=== PATIENT | female | born 1945 | race Caucasian/White ===

== ENCOUNTER → 2016-11-20 | Outpatient (CLI) | payer OTHER, BC ==
[~2016-11-20] MED LIST: ATEN50TA8 PO; CHOL100010 PO; DOCU-94 PO; HYDR-5688 PO; LOVA40TA4 PO; PRLSR20 PO; TAMS0.4C38 PO
--- NOTE | 2016-11-20 12:54 | DIAGNOSTIC IMAGING REPORT ---
MRI LEFT KNEE NO CONTRAST CLINICAL HISTORY: Left knee pain COMPARISON STUDY: 06/12/2016 FINDINGS: Imaging was performed in sagittal, coronal, and axial planes. There is a small suprapatellar joint effusion. There is a subchondral cyst within the lateral tibial plateau. There is marrow edema involving the medial tibial plateau with appearance suggestive of osteonecrosis. The anterior and posterior crucial ligaments appear intact. There is a horizontal tear involving the posterior horn the medial meniscus. No tears a lateral meniscus are visualized. There are degenerative changes present within the patellofemoral joint with dorsal patellar spurring, chondromalacia patella, and subchondral degenerative marrow edema. The medial and lateral collateral ligaments appear intact. There is moderate chondrosis involving the medial joint compartment. IMPRESSION: 1. 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 Degenerative changes involving the medial joint compartment with cartilaginous loss, medial joint compartment osteophytic spurring. 3. Horizontal tear involving the posterior horn the medial meniscus 4. Chondromalacia patella 5. No evidence of cruciate or collateral ligament disruption 6. Small joint effusion Electronically signed by: Irineo Silveira M.D. 11/20/2016 12:53 PM Dictated Date/Time: 11/20/2016 12:49 PM
== END | disposition home or self-care (01) ==
LOC: C.MRI 12:00
PROVIDERS: ATTEND Family Medicine
DX: S83.242A Other tear of medial meniscus, current injury, left knee, initial encounter (principal); M87.9 Osteonecrosis, unspecified; M22.42 Chondromalacia patellae, left knee; X58.XXXA Exposure to other specified factors, initial encounter

== ENCOUNTER → 2017-05-30 | Outpatient (CLI) | payer OTHER, BC ==
--- NOTE | 2017-05-30 16:11 | MAMMOGRAPHY REPORT ---
BILATERAL DIGITAL SCREENING MAMMOGRAM WITH CAD: 05/30/2017 CLINICAL HISTORY: Routine screening. Patient has no complaints. TECHNIQUE: Current study was also evaluated with a Computer Aided Detection (CAD) system. Bilateral CC and MLO views were obtained. COMPARISON: Comparison is made to exams dated: 12/31/2015 mammogram, 08/06/2014 mammogram, 07/01/2013 m ammogram, 01/05/2011 mammogram - [facility], and 12/28/2009 mammogram - [facility]. BREAST COMPOSITION: There are scattered areas of fibroglandular density in both breasts. FINDINGS: No suspicious masses, calcifications, or areas of architectural distortion are noted in ei ther breast. There has been no significant interval change compared to prior exams. Scattered bilater al benign-appearing calcifications are not significantly changed. IMPRESSION: ACR BI-RADS CATEGORY 2: BENIGN There is no mammographic evidence of malignancy. A 1 year screening mammogram is recommended. The pa tient will receive written notification of the results. Approximately 10% of breast cancers are not detected with mammography. A negative mammographic report should not delay biopsy if a clinically suggestive mass is present. Breanna Mares M.D. /:05/30/2017 14:02:07 Rat Breeder: Kathy SHEETSR, M, [facility] letter sent: Normal 1/2 BI-RADS Code: ACR BI-RADS Category 2: Benign
== END | disposition home or self-care (01) ==
LOC: C.MAMM 13:28
PROVIDERS: ATTEND Family Medicine
DX: Z12.31 Encounter for screening mammogram for malignant neoplasm of breast (principal)

== ENCOUNTER → 2017-08-22 | Outpatient (CLI) | payer OTHER, BC | END | disposition home or self-care (01) | LOC: C.LABMFLN 17:47 | PROVIDERS: ATTEND Family Medicine | DX: J02.9 Acute pharyngitis, unspecified (principal) ==

== ENCOUNTER 2019-04-01 10:45 | Observation (INO) ==
[2019-04-01] MEDS ORDERED: FUROSEMIDE 40 MG/4 ML VIAL IV STA (11:34)
[2019-04-01] MEDS ORDERED: LEVOFLOXACIN/D5W 500 MG/100 ML BAG IV STA (11:36)
[2019-04-01] MEDS ORDERED: SODIUM CHLORIDE 0.9% 1000ML 1,000 ML IV SCH (11:45)
--- NOTE | 2019-04-01 12:11 | XRay Report ---
XR chest 1V portable HISTORY: dizzy COMPARISON: Chest 11/04/2015. FINDINGS: The lungs are clear. Cardiac silhouette is normal in size. No pleural effusions. No pneumot horax. IMPRESSION: No acute process. Electronically signed by: Neo Willoughby M.D. 04/01/2019 12:10 PM
[2019-04-01 12:16] LABS: Alanine Aminotransferase 19 U/L (12-78); Albumin Level 3.5 gm/dl (3.4-5.0); Aspartate Aminotransferase 16 U/L (15-37); BUN Creatinine Ratio 23.1 (10-20); Blood Urea Nitrogen 19 mg/dl (7-18); Carbon Dioxide 26 mmol/L (21-32); Chloride 104 mmol/L (98-107); Creatinine Clr Calc Pharmacy 58.7 ml/min; Est GFR (African American) 82.9; Est GFR (Non-African American) 71.5; Glucose 150 mg/dl (70-99); Potassium 3.6 mmol/L (3.5-5.1); Sodium 139 mmol/L (136-145)
--- NOTE | 2019-04-01 12:16 | CT Scan Report ---
CT SCAN OF THE BRAIN WITHOUT IV CONTRAST CLINICAL HISTORY: Dizziness. COMPARISON STUDY: MRI of the brain dated 10/31/2018. TECHNIQUE: Unenhanced axial CT scan of the brain is performed from the vertex to the skull base. A do se lowering technique was utilized adhering to the principles of ALARA. CT DOSE: 537.48 mGy.cm FINDINGS: Brain parenchyma: There is minimal microangiopathic change. There is no hemorrhage, mass effect, or e vidence of acute territorial ischemia by CT criteria. Fairchild-white matter differentiation is preserved. No extra-axial fluid collection is seen. Ventricles, sulci, cisterns: Normal in configuration. Intracranial vasculature: There is atherosclerotic calcification of the cavernous carotid arteries. Calvarium: Unremarkable. Sinuses and mastoids: The visualized paranasal sinuses are clear. The mastoid air cells are well pneu matized. Orbits: The bony orbits are grossly intact. There is a right ocular lens implant. IMPRESSION: There is no hemorrhage, mass effect, or evidence of acute territorial ischemia by CT mansoor boyd. Electronically signed by: Eusebio Manjarrez M.D. 04/01/2019 12:14 PM
[2019-04-01 12:21] LABS: Albumin Globulin Ratio 0.9 (0.9-2); Alkaline Phosphatase 73 U/L (45-117); Bilirubin,Total 0.9 mg/dl (0.2-1); Globulin 4.1 gm/dl (2.5-4.0); Total Protein 7.6 gm/dl (6.4-8.2); Troponin I < 0.015 ng/ml (0-0.045)
[2019-04-01 12:22] LABS: INR 1.1 (0.9-1.1); Prothrombin Time 10.8 Seconds (9.0-12.0)
[2019-04-01 12:34] LABS: Basophils # (auto) 0.03 K/uL (0-0.2); Basophils % (auto) 0.4 %; Eosinophils # (auto) 0.15 K/uL (0-0.5); Eosinophils % (auto) 1.9 %; Hematocrit (blood only) 37.6 % (37-47); Hemoglobin 12.9 g/dL (12.0-16.0); Immature Granulocytes # (auto) 0.02 K/uL (0.00-0.02); Immature Granulocytes % (auto) 0.3 %; Lymphocytes # (auto) 1.23 K/uL (1.2-3.4); Lymphocytes % (auto) 15.7 %; Mean Corpuscular Hgb Conc 34.3 g/dL (32-36); Mean Corpuscular Volume 86.8 fL (80-100); Mean Platelet Volume 10.5 fL (7.4-10.4); Monocytes # (auto) 0.66 K/uL (0.11-0.59); Monocytes % (auto) 8.4 %; Neutrophils # (auto) 5.74 K/uL (1.4-6.5); Neutrophils % (auto) 73.3 %; Platelet Count 235 K/uL (130-400); RDW Standard Deviation 41.4 fL (36.4-46.3); Red Blood Count 4.33 M/uL (4.2-5.4); White Blood Count 7.83 K/uL (4.8-10.8)
[2019-04-01] MEDS ORDERED: SODIUM CHLORIDE 0.9% 1000ML 1,000 ML IV ONE (14:33)
[2019-04-01] MEDS ORDERED: ASPIRIN CHEW 324 MG PO STA (14:34)
[2019-04-01] MEDS ORDERED: ONDANSETRON INJ 2 MG/ML 2 ML VIAL IV PRN (16:19)
[2019-04-01] MEDS ORDERED: ACETAMINOPHEN 325 MG TAB PO PRN (16:19)
--- NOTE | 2019-04-01 16:24 | History & Physical Report ---
Date of Service April 01, 2019 Assessment & Plan (1) Abnormal ECG: some TW inversions in anterior leads, no other changes only complaint is palpitations, no episodes of chest pain or pressure troponin negative will repeat troponin q6 x 2 more sets repeat EKG in the morning observe on tele (2) Palpitations: occurring intermittently for past few weeks gets symptoms most days no association with specific activity will observe on tele check echocardiogram get TSH (3) Light headed: symptoms ONLY occur while standing more days than not, occur after standing or walking check orthostatics give IV fluids CT head normal denies any spinning or vertigo no associated nausea History of Present Illness Chief Complaint: I feel light headed Primary Care Provider: Eusebio Orlando MD 73 yo female with history of chronic pain, HTN, short term memory loss, dyslipidemia presents to the ED today due to ongoing light headedness, palpitations, weight loss and pre-syncope symptoms. She reports that the light headedness has been going on for a few weeks, a little worse more recently. She never had these symptoms prior to this. She says that she only gets light headed while standing, never while laying down or seated. The symptoms do not occur every day but they do happen more days than not. She has never actually lost consciousness. Symptoms improve if she stops walking and sits down. Only lasts a few minutes. More recently she has been experiencing palpitations, feels like heart is racing, skipping beats. No chest pain or pressure. No dyspnea. No nausea, vomiting, constipation. She says her stools are typically on the loose side. Admits to losing some weight recently but it has been unintentional. Labs in the ED normal. Troponin negative. CXR normal. CT head normal. EKG normal sinus with TW inversions in anterior leads. Treated with one liter of NSS. Allergies Allergy/AdvReac Type Severity Reaction Status Date / Time pregabalin Allergy Unknown RASH Verified 04/01/19 12:52 cephalexin AdvReac Unknown diarrhea Verified 04/01/19 12:52 Ambien TABS Allergy Unknown Uncoded 04/01/19 12:52 Home Medications Home Medications Medication Instructions Recorded Confirmed Type aspirin [Adult Aspirin Regimen] 81 mg PO QAM 04/01/19 04/01/19 History atenolol 75 mg PO QAM 04/01/19 04/01/19 History cholecalciferol (vitamin D3) 2,000 units PO QAM 04/01/19 04/01/19 History cyanocobalamin (vitamin B-12) 2,000 mcg PO QAM 04/01/19 04/01/19 History escitalopram oxalate 5 mg PO PM 04/01/19 04/01/19 History hydrochlorothiazide 12.5 mg PO QAM 04/01/19 04/01/19 History lovastatin 40 mg PO PM 04/01/19 04/01/19 History omeprazole 20 mg PO QPM 04/01/19 04/01/19 History Past Med/Surg History Medical History Depression (Chronic) HLD (hyperlipidemia) (Chronic) HTN (hypertension) (Chronic) Family History Other Hypertension Social History Preferred Language: [place] Communication Ability: Effective Unloading Checker Required: No Beliefs That Will Affect Care: None Current Living Situation: Spouse Other Information That Helps Us Care for You: No Feels Safe at Home: Yes Safety Concerns: Feels Safe At This Time Smoking Status: Never smoker Do You Dip or Chew Tobacco: No Second Hand Exposure: No Tobacco Cessation Education Requested by Patient: No Hx Alcohol Use: No Hx Substance Use: No Review of Systems Review of Systems: All systems reviewed & are unremarkable except as noted in HPI & below Physical Exam Constitutional: WD/WN, vitals as above Eyes: PERRL, conjunctivae normal, anicteric sclerae ENMT: external ear and nose normal, oropharynx normal Neck: trachea midline, no thyromegaly Respiratory: normal respiratory effort, lungs clear to auscultation Cardiovascular: RRR, no murmur, no edema Gastrointestinal (Abdomen): normal bowel sounds, soft, nontender, no hepatosplenomegaly Musculoskeletal: no cyanosis or clubbing, extremities motor strength 5/5 Skin: no rashes, warm and dry Neurologic: patellar DTR's 2+ bilat, sensation intact and PERRL, EOMI, accommodation nl, no face palsy, no dysarthria Psychiatric: A+Ox3, euthymic affect Lymphatic: no cervical or axillary lymphadenopathy Results & Data Vital Signs (Past 12 Hours) Vital Signs Temp Pulse Resp BP Pulse Ox 04/01/19 16:05 68 18 146/82 H 98 04/01/19 13:01 60 13 163/81 H 95 04/01/19 13:00 60 19 96 04/01/19 12:30 57 L 22 135/90 96 04/01/19 12:01 76 31 H 107/66 04/01/19 12:00 64 23 107/63 04/01/19 11:58 56 L 19 121/73 04/01/19 11:37 61 97 04/01/19 11:32 56 L 17 04/01/19 11:30 57 L 18 144/79 H 04/01/19 11:24 57 L 18 127/66 04/01/19 10:52 36.9 C 75 16 125/68 97 Laboratory Results Laboratory Results - last 24 hr 04/01/19 04/01/19 04/01/19 11:47 11:47 11:47 WBC 7.83 RBC 4.33 Hgb 12.9 Hct 37.6 MCV 86.8 MCH 29.8 MCHC 34.3 RDW Std Deviation 41.4 RDW Coeff of Vasile 13.0 Plt Count 235 MPV 10.5 H Immature Gran % (Auto) 0.3 Neut % (Auto) 73.3 Lymph % (Auto) 15.7 [place] % (Auto) 8.4 Eos % (Auto) 1.9 Baso % (Auto) 0.4 Immature Gran # (Auto) 0.02 Neut # (Auto) 5.74 Lymph # (Auto) 1.23 [place] # (Auto) 0.66 H Eos # (Auto) 0.15 Baso # (Auto) 0.03 PT 10.8 INR 1.1 Sodium 139 Potassium 3.6 Chloride 104 Carbon Dioxide 26 Anion Gap 9.0 BUN 19 H Creatinine 0.82 Est Cr Clr Drug Dosing 58.7 Est GFR ( Amer) 82.9 Est GFR (Non-Af Amer) 71.5 BUN/Creatinine Ratio 23.1 H Glucose 150 H Calcium 9.0 Total Bilirubin 0.9 AST 16 ALT 19 Alkaline Phosphatase 73 Troponin I < 0.015 Total Protein 7.6 Albumin 3.5 Globulin 4.1 H Albumin/Globulin Ratio 0.[address] HEAD IMPRESSION: There is no hemorrhage, mass effect, or evidence of acute territorial ischemia by CT criteria. XR chest 1V portable FINDINGS: The lungs are clear. Cardiac silhouette is normal in size. No pleural effusions. No pneumothorax. IMPRESSION: No acute process. ECG Indication: palpitations Rhythm: normal sinus Findings: + T-wave inversion (anterior leads) Code Status & VTE Plan Code Status FULL CODE VTE Prophylaxis Plan VTE Prophylaxis will be ordered: No PG Care Time/CCT Total # of Minutes Spent Total Time Spent with Patient: Total time spent is greater than 50% in coordination of care (as documented) at patient's floor/unit and/or counseling patient:
[2019-04-01] MEDS ORDERED: NSS + 20MEQ KCL 20 MEQ/1,000 ML BAG IV SCH (17:00)
--- NOTE | 2019-04-01 17:55 | Emergency Department Note ---
Entered by Lily Mcgowan acting as a scribe for History of Present Illness General Chief complaint: Vertigo Stated complaint: VERTIGO, RAPID HEART RATE Source: patient History of Present Illness Provider complaint: dizziness Onset (ago): day(s) (3-4 days) Location: head Quality: + other (room spinning) Associated symptoms: + other (rapid heart beat); no chest pain, no nausea/vomiting and no shortness of breath The patient is a 73 year old male with a PMHX of a cholecyscetomy, appendectomy, HTN, GERD, HLD, and depression who presents to the Emergency Department with complaints of dizziness over the last 3-4 days. She states that she gets the dizziness while walking but not with a change in position. She describes the dizziness as "spinning" and states that she does not feel like she is going to pass out. The patient also reports feeling like she has water in her ears. She also reports having a rapid heart beat and states that she feels her heart racing when she lays down. She states that she notices it in the morning and reports that it lasts for 2-3 minutes. The patient denies having nausea, vomiting, chest pain, and shortness of breath. She denies a history of diabetes and heart disease and states that she does not smoke. Home Medications Home Medications Medication Instructions Recorded Confirmed Type aspirin [Adult Aspirin Regimen] 81 mg PO QAM 04/01/19 04/01/19 History atenolol 75 mg PO QAM 04/01/19 04/01/19 History cholecalciferol (vitamin D3) 2,000 units PO QAM 04/01/19 04/01/19 History cyanocobalamin (vitamin B-12) 2,000 mcg PO QAM 04/01/19 04/01/19 History escitalopram oxalate 5 mg PO PM 04/01/19 04/01/19 History hydrochlorothiazide 12.5 mg PO QAM 04/01/19 04/01/19 History lovastatin 40 mg PO PM 04/01/19 04/01/19 History omeprazole 20 mg PO QPM 04/01/19 04/01/19 History Allergies Allergy/AdvReac Type Severity Reaction Status Date / Time pregabalin Allergy Unknown RASH Verified 04/01/19 12:52 cephalexin AdvReac Unknown diarrhea Verified 04/01/19 12:52 Ambien TABS Allergy Unknown Uncoded 04/01/19 12:52 Past Med/Surg History Medical History Depression (Chronic) HLD (hyperlipidemia) (Chronic) HTN (hypertension) (Chronic) Social History Preferred Language: Nepali Communication Ability: Effective Soccer Coach Required: No Beliefs That Will Affect Care: None Current Living Situation: Spouse Other Information That Helps Us Care for You: No Feels Safe at Home: Yes Safety Concerns: Feels Safe At This Time Smoking Status: Never smoker Do You Dip or Chew Tobacco: No Second Hand Expos ure: No Tobacco Cessation Education Requested by Patient: No Hx Alcohol Use: No Hx Substance Use: No Review of Systems See HPI for pertinent positives & negatives. and A total of 10 systems reviewed and were otherwise negative Physical Exam Vital Signs Vital Signs - 24 hr 04/01/19 10:52 04/01/19 11:24 04/01/19 11:30 Temperature 36.9 C Temperature Source Oral Sepsis Recent Fever Within 48 Hours No Sepsis New/Unexplained Change in Mental Status No Sepsis Action Taken by Nursing No Action Required Pulse Rate - Lying Pulse Rate - Sitting Pulse Rate - Standing Pulse Rate 75 57 L 57 L Pulse Rate from SpO2 Sensor Respiratory Rate 16 18 18 Respiratory Depth Normal Blood Pressure - Lying Blood Pressure - Sitting Blood Pressure- Standing Blood Pressure 125/68 127/66 144/79 H Blood Pressure Mean 87 86 100 Pulse Oximetry 97 Oxygen Delivery Method 04/01/19 11:32 04/01/19 11:37 04/01/19 11:58 Temperature Temperature Source Sepsis Recent Fever Within 48 Hours Sepsis New/Unexplained Change in Mental Status Sepsis Action Taken by Nursing Pulse Rate - Lying Pulse Rate - Sitting Pulse Rate - Standing Pulse Rate 56 L 61 56 L Pulse Rate from SpO2 Sensor Respiratory Rate 17 19 Respiratory Depth Blood Pressure - Lying Blood Pressure - Sitting Blood Pressure- Standing Blood Pressure 121/73 Blood Pressure Mean 89 Pulse Oximetry 97 Oxygen Delivery Method Room Air 04/01/19 11:59 04/01/19 12:00 04/01/19 12:01 Temperature Temperature Source Sepsis Recent Fever Within 48 Hours Sepsis New/Unexplained Change in Mental Status Sepsis Action Taken by Nursing Pulse Rate - Lying 58 L Pulse Rate - Sitting 70 Pulse Rate - Standing 64 Pulse Rate 64 76 Pulse Rate from SpO2 Sensor Respiratory Rate 23 31 H Respiratory Depth Blood Pressure - Lying 121/73 Blood Pressure - Sitting 107/63 Blood Pressure- Standing 107/66 Blood Pressure 107/63 107/66 Blood Pressure Mean 77 79 Pulse Oximetry Oxygen Delivery Method 04/01/19 12:30 04/01/19 13:00 04/01/19 13:01 Temperature Temperature Source Sepsis Recent Fever Within 48 Hours Sepsis New/Unexplained Change in Mental Status Sepsis Action Taken by Nursing Pulse Rate - Lying Pulse Rate - Sitting Pulse Rate - Standing Pulse Rate 57 L 60 60 Pulse Rate from SpO2 Sensor 57 L 61 60 Respiratory Rate 22 19 13 Respiratory Depth Blood Pressure - Lying Blood Pressure - Sitting Blood Pressure- Standing Blood Pressure 135/90 163/81 H Blood Pressure Mean 105 108 Pulse Oximetry 96 96 95 Oxygen Delivery Method GENERAL: Sitting up in bed. EYE EXAM: normal conjunctiva, PERRL and EOM's intact EARS: TMs clear bilaterally. OROPHARYNX: no exudate, no erythema, lips, buccal mucosa, and tongue normal and mucous membranes are moist NECK: supple, no nuchal rigidity, no adenopathy, non-tender LUNGS: Clear to auscultation. Normal chest wall mechanics HEART: no murmurs, S1 normal and S2 normal ABDOMEN: abdomen soft, non-tender, normo-active bowel sounds, no masses, no rebound or guarding. BACK: Back is symmetrical on inspection and there is no deformity, no midline tenderness, no CVA tenderness. SKIN: no rashes and no bruising UPPER EXTREMITIES: upper extremities are grossly normal. LOWER EXTREMITIES: No pitting edema. NEURO EXAM: Normal sensorium, cranial nerves II-XII grossly intact, normal speech, no gross weakness of arms, no gross weakness of legs. No drift. Finger to nose intact. Gross sensation intact. Ambulates without difficulty. Course ED COURSE: Vital signs were reviewed and were normal. The patients medical record was reviewed 1129: The patient was evaluated in room C2B. A history and physical were performed. 1415: I checked on the patient and updated her on her results. She refused admission. 1420: Upon standing, the patient got dizzy. She is now agreeable to admission. 1430: I discussed the patient's case with Dr. Del Real who will evaluate the patient for further management. Consultations Consultation #1: Dr. Pokuah-Hospitalist Time: 14:30 Administered Medications Potassium Chloride/Sodium Chloride (Normal Saline W/20 Meq Kcl) 20 meq in 1,000 mls @ 100 mls/hr IV .Q10H MARY Stop: 04/02/19 02:59 Last Admin: 04/01/19 17:00 Dose: 100 mls/hr Documented by: [id number] Discontinued Medications Aspirin (Aspirin) 324 mg PO NOW STA Stop: 04/01/19 14:35 Last Admin: 04/01/19 14:38 Dose: 324 mg Documented by: [id number] Furosemide (Lasix) 20 mg IV NOW STA Stop: 04/01/19 11:35 Last Admin: 04/01/19 13:19 Dose: Not Given Documented by: [id number] Sodium Chloride (Nss 1000ml) 1,000 mls @ 999 mls/hr IV .Q1H1M MARY Stop: 04/01/19 12:45 Last Infusion: 04/01/19 13:20 Dose: 0 mls/hr Documented by: [id number] Admin: 04/01/19 12:05 Dose: 999 mls/hr Documented by: [id number] Levofloxacin/Dextrose (Levaquin/D5w) 500 mg in 100 mls @ 100 mls/hr IV NOW STA Stop: 04/01/19 12:35 Last Admin: 04/01/19 13:19 Dose: Not Given Documented by: [id number] Sodium Chloride (Nss 1000ml) 1,000 mls @ 999 mls/hr IV .Q1H1M ONE Stop: 04/01/19 15:33 Last Admin: 04/01/19 17:06 Dose: Not Given Documented by: [id number] Medical Decision Making Differential Diagnosis Differential diagnosis includes etiologies such as benign positional vertigo, dehydration, hypovolemia, anemia, tumor, infection, hypoglycemia, electrolyte abnormalities, cardiac sources, intracerebral event, toxicologic, neurologic, as well as others were entertained. Medical Records Attestation: I reviewed the patient's medical records. Home Medications Current Medication List: was personally reviewed by me Laboratory Data Attestation: I reviewed the patient's lab results. Result diagrams: 04/01/19 11:47 04/01/19 11:47 Lab Results 04/01/19 04/01/19 04/01/19 Range/Units 11:47 11:47 11:47 WBC 7.83 (4.8-10.8) K/uL RBC 4.33 (4.2-5.4) M/uL Hgb 12.9 (12.0-16.0) g/dL Hct 37.6 (37-47) % MCV 86.8 (80-100) fL MCH 29.8 (25-34) pg MCHC 34.3 (32-36) g/dL RDW Std Deviation 41.4 (36.4-46.3) fL RDW Coeff of Vasile 13.0 (11.5-14.5) % Plt Count 235 (130-400) K/uL MPV 10.5 H (7.4-10.4) fL Immature Gran % (Auto) 0.3 % Neut % (Auto) 73.3 % Lymph % (Auto) 15.7 % [place] % (Auto) 8.4 % Eos % (Auto) 1.9 % Baso % (Auto) 0.4 % Immature Gran # (Auto) 0.02 (0.00-0.02) K/uL Neut # (Auto) 5.74 (1.4-6.5) K/uL Lymph # (Auto) 1.23 (1.2-3.4) K/uL [place] # (Auto) 0.66 H (0.11-0.59) K/uL Eos # (Auto) 0.15 (0-0.5) K/uL Baso # (Auto) 0.03 (0-0.2) K/uL PT 10.8 (9.0-12.0) Seconds INR 1.1 (0.9-1.1) Sodium 139 (136-145) mmol/L Potassium 3.6 (3.5-5.1) mmol/L Chloride 104 (98-107) mmol/L Carbon Dioxide 26 (21-32) mmol/L Anion Gap 9.0 (3-11) BUN 19 H (7-18) mg/dl Creatinine 0.82 (0.6-1.2) mg/dl Est Cr Clr Drug Dosing 58.7 ml/min Est GFR ( Amer) 82.9 Est GFR (Non-Af Amer) 71.5 BUN/Creatinine Ratio 23.1 H (10-20) Glucose 150 H (70-99) mg/dl Calcium 9.0 (8.5-10.1) mg/dl Total Bilirubin 0.9 (0.2-1) mg/dl AST 16 (15-37) U/L ALT 19 (12-78) U/L Alkaline Phosphatase 73 (45-117) U/L Troponin I < 0.015 (0-0.045) ng/ml Total Protein 7.6 (6.4-8.2) gm/dl Albumin 3.5 (3.4-5.0) gm/dl Globulin 4.1 H (2.5-4.0) gm/dl Albumin/Globulin Ratio 0.9 (0.9-2) Imaging Data Radiologist's Impression: Radiology results as stated below per my review and the radiologist's interpretation: XR chest 1V portable HISTORY: dizzy COMPARISON: Chest 11/04/2015. FINDINGS: The lungs are clear. Cardiac silhouette is normal in size. No pleural effusions. No pneumothorax. IMPRESSION: No acute process. Electronically signed by: Neo Willoughby M.D. 04/01/2019 12:[address] SCAN OF THE BRAIN WITHOUT IV CONTRAST CLINICAL HISTORY: Dizziness. COMPARISON STUDY: MRI of the brain dated 10/31/2018. TECHNIQUE: Unenhanced axial CT scan of the brain is performed from the vertex to the skull base. A dose lowering technique was utilized adhering to the principles of ALARA. CT DOSE: 537.48 mGy.cm FINDINGS: Brain parenchyma: There is minimal microangiopathic change. There is no hemorrhage, mass effect, or evidence of acute territorial ischemia by CT criteria. Fairchild-white matter differentiation is preserved. No extra-axial fluid collection is seen. Ventricles, sulci, cisterns: Normal in configuration. Intracranial vasculature: There is atherosclerotic calcification of the cavernous carotid arteries. Calvarium: Unremarkable. Sinuses and mastoids: The visualized paranasal sinuses are clear. The mastoid air cells are well pneumatized. Orbits: The bony orbits are grossly intact. There is a right ocular lens implant. IMPRESSION: There is no hemorrhage, mass effect, or evidence of acute territorial ischemia by CT criteria. Electronically signed by: Eusebio Manjarrez M.D. 04/01/2019 12:14 PM ECG Data Attestation: I personally reviewed and interpreted this ECG as follows: Indication: other (dizziness) Rate (beats per minute): 52 Rhythm: sinus bradycardia Findings: + other (normal axis) and + T-wave inversion (septal and anterior) Comparison ECG Date: from (abnormal T wave changes in septal and anterior leads) Change: the following changes noted (02/06/16) Blood Pressure Blood Pressure Findings: Normal blood pressure MDM Narrative Patient is a 73-year-old female who presents the ER for feeling her heart race intermittently for the past 4 days in the morning when she wakes up which lasts for about a minute to 2 minutes. She also notes feeling dizzy with ambulating for the past 4 days and has some mild shortness of breath which has been a little bit more prolonged. Patient does have a history of hypertension hyperlipidemia. EKG upon review of previous shows new T WI in the septal/anterior leads. This is subtle but is changed. Labs show no significant leukocytosis or anemia. INR was unremarkable. BMP showed small amount of hyperglycemia. LFTs bilirubin was unremarkable. Troponin was negative. CT of the head was unremarkable. I reviewed the chest x-ray showed no focal infiltrate. Patient was updated bedside. She was given some IV fluids. With the above findings I discussed case with the patient and her . She initially requested to be discharged but eventually was agreeable for observation. Patient was updated bedside. Discussed with the hospitalist per Impression & Plan Dizzy, Abnormal ECG, Elevated BUN, Hyperglycemia Discharge Plan Visit Data *Final* Discharge Date/Time: 04/01/19 16:05 Chief Complaint: Vertigo Stated Complaint: VERTIGO, RAPID HEART RATE ED Provider: Piyush Brown Discharge Problem: Dizzy, Abnormal ECG, Elevated BUN, Hyperglycemia Patient Disposition: Admitted As Inpatient Discharge Instructions Interventions: ED Discharge Assessment Last Done: 04/01/19 16:05 The scribe's documentation has been prepared under my direction and personally reviewed by me in its entirety. I confirm that the note above accurately reflects all work, treatment, procedures, and medical decision making performed by me.
[2019-04-01] MEDS ORDERED: PANTOprazole 40 MG TAB PO SCH (21:00)
[2019-04-01] MEDS ORDERED: ESCITALOPRAM OXALATE 10 MG TAB PO SCH (21:00)
[2019-04-01] MEDS ORDERED: LOVASTATIN 20 MG TAB PO SCH (21:00)
[2019-04-02 05:55] LABS: Hematocrit (blood only) 35.8 % (37-47); Hemoglobin 12.3 g/dL (12.0-16.0); Mean Corpuscular Hgb Conc 34.4 g/dL (32-36); Mean Corpuscular Volume 86.9 fL (80-100); Mean Platelet Volume 10.2 fL (7.4-10.4); Platelet Count 207 K/uL (130-400); RDW Standard Deviation 41.6 fL (36.4-46.3); Red Blood Count 4.12 M/uL (4.2-5.4); White Blood Count 7.38 K/uL (4.8-10.8)
[2019-04-02 06:30] LABS: BUN Creatinine Ratio 19.1 (10-20); Calcium 8.5 mg/dl (8.5-10.1); Creatinine Clr Calc Pharmacy 73.3 ml/min; Est GFR (African American) 102.3; Est GFR (Non-African American) 88.3
[2019-04-02] MEDS ORDERED: ASPIRIN 81 MG ECTAB PO SCH (09:00)
[2019-04-02] MEDS ORDERED: CHOLECALCIFEROL 1,000 UNITS TAB PO SCH (09:00)
[2019-04-02] MEDS ORDERED: CYANOCOBALAMIN 500 MCG TABLET (VITAMIN B-12) PO SCH (09:00)
[2019-04-02] MEDS ORDERED: ATENOLOL 50 MG TABLET PO SCH (09:00)
[2019-04-02] MEDS ORDERED: hydroCHLOROthiazide 25 MG TAB PO SCH (09:00)
--- NOTE | 2019-04-02 12:02 | Discharge Summary ---
Date of Service April 02, 2019 Admission HPI Per Admitting Provider 73 yo female with history of chronic pain, HTN, short term memory loss, dyslipidemia presents to the ED today due to ongoing light headedness, palpitations, weight loss and pre-syncope symptoms. She reports that the light headedness has been going on for a few weeks, a little worse more recently. She never had these symptoms prior to this. She says that she only gets light headed while standing, never while laying down or seated. The symptoms do not occur every day but they do happen more days than not. She has never actually lost consciousness. Symptoms improve if she stops walking and sits down. Only lasts a few minutes. More recently she has been experiencing palpitations, feels like heart is racing, skipping beats. No chest pain or pressure. No dyspnea. No nausea, vomiting, constipation. She says her stools are typically on the loose side. Admits to losing some weight recently but it has been unintentional. Labs in the ED normal. Troponin negative. CXR normal. CT head normal. EKG normal sinus with TW inversions in anterior leads. Treated with one liter of NSS. Admission Exam Per Admitting Provider Constitutional: WD/WN, vitals as above Eyes: PERRL, conjunctivae normal, anicteric sclerae ENMT: external ear and nose normal, oropharynx normal Neck: trachea midline, no thyromegaly Respiratory: normal respiratory effort, lungs clear to auscultation Cardiovascular: RRR, no murmur, no edema Gastrointestinal (Abdomen): normal bowel sounds, soft, nontender, no hepatosplenomegaly Musculoskeletal: no cyanosis or clubbing, extremities motor strength 5/5 Skin: no rashes, warm and dry Neurologic: patellar DTR's 2+ bilat, sensation intact and PERRL, EOMI, accommodation nl, no face palsy, no dysarthria Psychiatric: A+Ox3, euthymic affect Lymphatic: no cervical or axillary lymphadenopathy Principal Diagnosis Light headed, palpitations Discharge Exam Constitutional WD/WN, vitals as above Eyes PERRL, conjunctivae normal, anicteric sclerae ENMT external ear and nose normal, oropharynx normal Neck trachea midline, no thyromegaly Respiratory normal respiratory effort, lungs clear to auscultation Cardiovascular RRR, no murmur, no edema Gastrointestinal (Abdomen) normal bowel sounds, soft, nontender, no hepatosplenomegaly Musculoskeletal no cyanosis or clubbing, extremities motor strength 5/5 Skin no rashes, warm and dry Neurologic patellar DTR's 2+ bilat, sensation intact and PERRL, EOMI, accommodation nl, no face palsy, no dysarthria Psychiatric A+Ox3, euthymic affect Lymphatic no cervical or axillary lymphadenopathy Discharge Data Allergies Allergy/AdvReac Type Severity Reaction Status Date / Time pregabalin Allergy Unknown RASH Verified 04/01/19 12:52 cephalexin AdvReac Unknown diarrhea Verified 04/01/19 12:52 Ambien TABS Allergy Unknown Uncoded 04/01/19 12:52 Consultations 04/01/19 14:32 ED Decision to Admit Stat Ordered Studies 04/01/19 11:33 CT head/brain wo con Stat Hospital Course (1) Abnormal ECG: some TW inversions in anterior leads, no other changes only complaint is palpitations, no episodes of chest pain or pressure troponin negative repeat EKG this morning shows the TW inversions resolved echocardiogram was normal troponin negative x 3 sets, no chest pain over night (2) Palpitations: occurring intermittently for past few weeks gets symptoms most days no association with specific activity TSH normal no arrhythmias seen on tele monitor, no pauses, no frequent PVCs troponin negative echo normal not experiencing any palpitations at the time of discharge if issue persists could always consider a 30 day monitor as outpatient follow up with Dr. Orlando (3) Light headed: symptoms ONLY occur while standing more days than not, occur after standing or walking orthostatic vitals were normal no symptoms today no arrhythmias when walking around difficult to determine a cause advised patient to stay well hydrated, do not transition from sitting, standing and walking too quickly follow up with Dr. Orlando Total Time Total Time Spent Total Time Spent (In Minutes): 35 minutes Total Time Includes: Examination of the Patient, Discharge Planning and Medication Reconciliation Discharge Plan Discharge Items Patient Disposition: Home - Self-Care Reason For Visit: VERTIGO,PRE-SYNCOPE,TW INVERSION Discharge Diagnosis: Light headedness Palpitations EKG changes Condition: Good Discharge Goals: Improve disease control and Improve function Activity: Resume your previous activity Non-emergency contact: Primary Care Provider Call non-emergency contact if: you have any medication questions, your symptoms worsen and you have a fever Follow-up/Referrals: Eusebio Orlando MD [Primary Care Provider] - Diet: Regular Addtl Provider Instructions: Medications: no changes Light headed, palpitations no clear etiology monitored on telemetry, no arrhythmias, no pauses, no significant tachycardia seen normal vitals when standing, no evidence of orthostatic hypotension TSH normal routine lab work with CBC and CMP is normal troponin cycled and was negative echocardiogram without significant pathology Subtle EKG changes: initially with T wave inversions in anterior leads resolved in the morning, never associated with chest pain/pressure and troponin (heart enzyme) was negative x 3 sets recommend that you stay well hydrated, pause in between standing and walking, no quick transitions between sitting/standing FOLLOW UP - Dr. Orlando in one week, call for appt Prescriptions: Continued lovastatin 40 mg tablet 40 mg PO PM RF: 0 cyanocobalamin (vitamin B-12) 1,000 mcg tablet 2,000 mcg PO QAM RF: 0 aspirin [Adult Aspirin Regimen] 81 mg tablet,delayed release (DR/EC) 81 mg PO QAM RF: 0 omeprazole 20 mg capsule,delayed release(DR/EC) 20 mg PO QPM RF: 0 atenolol 50 mg tablet 75 mg PO QAM RF: 0 cholecalciferol (vitamin D3) 1,000 unit capsule 2,000 units PO QAM RF: 0 escitalopram oxalate 5 mg tablet 5 mg PO PM RF: 0 hydrochlorothiazide 12.5 mg tablet 12.5 mg PO QAM RF: 0 Stand-Alone Forms: [facility] Discharge Orders: Discharge Order (Routine); Ordered 04/02/19 Ordered By: Wu Connelly Admission Data Admit Date/Time: 04/01/19 15:01 Attending Provider: Wu Connelly Admit Provider: Wu Connelly Primary Care Provider: Eusebio Orlando Other Providers: Dolly Vega Service: Telemetry Other Interventions: Discharge Summary Assessment (RN) Last Done: 04/02/19 11:01 DC Date/Time DO NOT enter until pt leaves facility: 04/02/19 11:40
== END 2019-04-02 11:40 | disposition home or self-care (01) ==
LOC: ED 10:45 → 2S 10:45